=== PATIENT | female | born 2000 | race Caucasian/White ===

== ENCOUNTER 2021-04-17 10:46 | Emergency (ER) | payer OTHER, SELFPAY ==
[2021-04-17 10:47] VITALS: BP 135/97; PULSE 78; RESP 16; TEMP 36.6; O2SAT 99; BMI 21.8
--- NOTE | 2021-04-17 11:09 | CT_ITS ---
EXAM: CT ABDOMEN AND PELVIS WITHOUT INTRAVENOUS CONTRAST : 2000 CLINICAL INDICATION: Kidney Stone TECHNIQUE: Helically acquired images were obtained of the abdomen and pelvis without intravenous contrast. This CT exam was performed using one or more of the following dose reduction techniques: automated exposure control, adjustment of the mA and/or kV according to patient size, and/or use of iterative reconstruction technique. This report was created using [employer] report generation technology. COMPARISON: None. FINDINGS: LOWER THORAX: Unremarkable. Lung bases are clear. No cardiomegaly. No significant pericardial effusion. ABDOMEN: LIVER: Unremarkable. Homogeneous. GALLBLADDER AND BILE DUCTS: Unremarkable. No calcified gallstones. No gallbladder distention or wall edema. No intra- or extrahepatic biliary ductal dilation. PANCREAS: Unremarkable. No focal cystic mass. SPLEEN: Unremarkable. Normal size without focal cystic or solid mass. ADRENALS: Unremarkable. No nodules. KIDNEYS AND URETERS: Unremarkable. Normal renal size and position. No hydronephrosis. STOMACH AND BOWEL: Unremarkable. No stomach or bowel distention. No focal inflammatory change. PELVIS: APPENDIX: No evidence of acute appendicitis. BLADDER: Unremarkable. REPRODUCTIVE: Unremarkable as visualized. No mass. ABDOMEN and PELVIS: INTRAPERITONEAL SPACE: Unremarkable. No ascites or other fluid collection. No free air. BONES/JOINTS: Unremarkable. No suspicious lytic or blastic abnormality. SOFT TISSUES: Unremarkable. No discrete abdominal or pelvic wall hernia. VASCULATURE: Unremarkable. Abdominal aorta is non-dilated. LYMPH NODES: Unremarkable. No enlarged lymph nodes. CT/Abdomen/Pelvis without Cont IMPRESSION: Negative CT of the abdomen and pelvis without intravenous contrast. Individualized dose optimization techniques were used for this CT. at 1255 Reported and signed by: John Moore MD Electronically Signed: John Moore MD at 12:54 EDT Tel , Service support ,
--- NOTE | 2021-04-17 11:10 | EX.ED.DYSGE1 ---
HPI History of Present Illness Chief Complaint: Flank Pain Informant: patient Narrative Narrative: 21-year-old healthy female presents the emergency room with right flank pain. Patient states the symptoms have been intermittent and when they are present are sharp and causes her nausea. They do occasionally wake her out of her sleep. Patient notes that she has been working more at [employer] and cutting [employer] which utilizes her core but her core muscles have not been sore. She notes there is 1 small area that is tender along the lower mid axillary ribs. She denies any change in urinary symptoms. No change in bowel symptoms. No fevers. PFSH PFSH no medical history Home Medications NK 04/17/21 [History Last Taken Unknown] Allergy/AdvReac Type Severity Reaction Status Date / Time naproxen Allergy Rash Verified 04/17/21 10:53 no surgical history Social History (Updated 04/17/21 @ 11:[address] Akil Navarrete, DO) Smoking Status: Never smoker substance use type: does not use ROS ROS ED Constitutional Constitutional ED: Denies chills or weight loss Eyes Eyes: Denies change in vision or diplopia ENT ENT ED: Denies ear pain, rhinorrhea or sore throat Cardiovascular Cardiovascular: Denies chest pain, orthopnea, palpitations or racing heartbeat Respiratory/Chest Respiratory/Chest: Denies cough, dyspnea or orthopnea Gastrointestinal Gastrointestinal: Reports nausea; Denies abdominal pain, diarrhea or vomiting Genitourinary Genitourinary ED: Reports other Details: Right flank pain ; Denies dysuria, hematuria or urinary frequency Musculoskeletal Musculoskeletal: Denies arthralgias or myalgias Integumentary Denies abscess or rash Neurologic Neurologic: Denies headache(s) or weakness Psychiatric Psychiatric: Denies anxiety, depression, suicidal ideation or suicidal thoughts Endocrine Endocrinology: Denies polydipsia, polyphagia or polyuria Allergic/Immunologic Allergic/Immunologic ED: Denies mouth swelling, tongue swelling or urticaria EXAM Physical Exam Const Vital Signs: 04/17/21 10:47 04/17/21 10:53 04/17/21 13:04 Temperature 97.9 F Temperature Source Temporal Pulse Rate 78 89 Respiratory Rate 16 16 Respiratory Effort Normal Respiratory Pattern Normal Blood Pressure 135/97 H 128/79 H Blood Pressure Mean 109 95 Pulse Ox 99 99 Oxygen Delivery Method Room Air Positive well nourished and well developed General Appearance ED: well developed HEENT Reports normocephalic, head/scalp atraumatic and moist mucous membranes Eyes PERRL and EOMs intact bilaterally Neck no lymphadenopathy, supple and no JVD Chest Wall Chest Narrative: Tender to palpation over the lower ribs on the right in the midaxillary line. Specifically rib 11 and 12. Resp normal respiratory effort and clear to auscultation bilaterally Cardio regular rate, regular rhythm and no murmurs GI normal to inspection, nondistended, normoactive bowel sounds and non-tender Palpation: soft Back/Spine no CVA tenderness and normal ROM Extremity normal to inspection General Extremety ED: Negative for edema General Extremity: Negative for edema Neuro oriented x3 and CN's II-XII intact bilaterally Sensorium / Orientation: alert Motor Exam: strength 5/5 throughout Psych mental status grossly normal Mood & Affect: Negative for depressed or tearful Skin no rashes or lesions noted and no wounds MDM MDM MDM Narrative Medical decision making narrative: Basic blood work was obtained and was negative. Serum test negative. Urinalysis negative. CT the abdomen pelvis without contrast was obtained does not show any acute pathology to explain her symptoms. This point patient be discharged home. Anti-inflammatories and rest follow-up primary care if not improving return if worsening Lab Data Attestation: I reviewed the patient's lab results. Labs: Laboratory Results - last 24 hr 04/17/21 04/17/21 04/17/21 11:19 11:19 11:19 WBC 6.7 RBC 5.18 Hgb 14.1 Hct 43.6 MCV 84.2 MCH 27.2 MCHC 32.3 RDW Std Deviation 41.7 RDW Coeff of [place] 13.4 Plt Count 359 MPV 10.2 Immature Gran % (Auto) 0.100 Neut % (Auto) 62.7 Lymph % (Auto) 27.8 [place] % (Auto) 8.8 Eos % (Auto) 0.3 Baso % (Auto) 0.3 Absolute Neuts (auto) 4.2 Absolute Lymphs (auto) 1.86 Nucleated RBC % 0 Sodium 137 Potassium 4.2 Chloride 108 H Carbon Dioxide 24.0 Anion Gap 5 BUN 10 Creatinine 0.93 Estim Creat Clear Calc 91.49 Est GFR (MDRD) Af Amer 96 Est GFR (MDRD) Non-Af 79 BUN/Creatinine Ratio 10.7 Glucose 86 Calcium 8.7 Total Bilirubin 0.50 AST 19 ALT 24 Alkaline Phosphatase 40 L Total Protein 7.8 Albumin 3.9 Globulin 3.9 Albumin/Globulin Ratio 1.0 Serum , Qual NEGATIVE Urine Color Urine Clarity Urine pH Ur Specific [place] Urine Protein Urine Glucose (UA) Urine Ketones Urine Occult Blood Urine Nitrite Urine Bilirubin Urine Urobilinogen Ur Leukocyte Esterase Urine RBC Urine WBC Ur Squamous Epith Cells Urine Bacteria Urine Mucus 04/17/21 12:20 WBC RBC Hgb Hct MCV MCH MCHC RDW Std Deviation RDW Coeff of [place] Plt Count MPV Immature Gran % (Auto) Neut % (Auto) Lymph % (Auto) [place] % (Auto) Eos % (Auto) Baso % (Auto) Absolute Neuts (auto) Absolute Lymphs (auto) Nucleated RBC % Sodium Potassium Chloride Carbon Dioxide Anion Gap BUN Creatinine Estim Creat Clear Calc Est GFR (MDRD) Af Amer Est GFR (MDRD) Non-Af BUN/Creatinine Ratio Glucose Calcium Total Bilirubin AST ALT Alkaline Phosphatase Total Protein Albumin Globulin Albumin/Globulin Ratio Serum , Qual Urine Color Yellow Urine Clarity Sl. Cloudy Urine pH 6.5 Ur Specific [place] 1.010 Urine Protein 15 H Urine Glucose (UA) Normal Urine Ketones Negative Urine Occult Blood 10 H Urine Nitrite Negative Urine Bilirubin Negative Urine Urobilinogen Normal Ur Leukocyte Esterase Negative Urine RBC 0 SEEN Urine WBC 0 SEEN Ur Squamous Epith Cells 0-5 SEEN Urine Bacteria 0 SEEN Urine Mucus 0 SEEN Radiography Diagnostic Testing: Radiology Impression Abdomen/Pelvis CT 04/17/21 11:09 IMPRESSION: Negative CT of the abdomen and pelvis without intravenous contrast. Individualized dose optimization techniques were used for this CT. at 1255 Reported and signed by: John Moore MD Electronically Signed: John Moore MD at 12:54 EDT Tel , Service support , Discharge Plan Triage Chief Complaint: Flank Pain ED Provider: Akil Navarrete Dx/Rx/DC Orders Clinical Impression: Acute right flank pain Instructions: ED Flank Pain, Uncertain Cause Prescriptions: No Action NK RF: 0 Primary Care Provider: Care Physician,No Primary Referrals: Balbir Rock MD [STAFF PHYSICIAN] - As Needed Care Physician,No Primary [Primary Care Provider] - Disposition Disposition: Home, Self Care
[2021-04-17] MEDS: Ondansetron ODT 4 MG Tablet PO (11:25)
[2021-04-17 11:27] LABS: Absolute Lymphocyte Count 1.86 X10^3/uL (0.83-4.51); Absolute Neutrophil Count 4.2 X10^3/uL (2.0-7.7); Basophil# 0.02 X10^3/uL; Basophil% 0.3 % (0-1); Eosinophil# 0.02 X10^3/uL; Eosinophils% 0.3 % (0-5); Hematocrit 43.6 % (37-47); Hemoglobin 14.1 g/dL (12.0-15.0); Lymphocyte # 1.86 X10^3/ul (0.83-4.51); Lymphocyte % 27.8 % (19-41); Mean Corp Hgb Conc 32.3 g/dL (32-36); Mean Corpuscular Hgb 27.2 pg (27.0-32.0); Mean Corpuscular Volume 84.2 fL (81-99); Mean Platelet Vol. 10.2 fl (6.2-12.0); Monocyte# 0.59 X10^3/uL; Monocyte% 8.8 % (0-10); NRBC Flagged by Analyzer 0 % (0-5); Neutrophil # 4.18 X10^3/uL (2.7-7.7); Neutrophil % 62.7 % (47-70); Platelet Count 359 K/mm3 (150-450); RBC Distribution Width CV 13.4 % (11.6-14.6); RBC Distribution Width SD 41.7 fl (35.1-43.9); Red Blood Count 5.18 M/mm3 (4.2-5.4); White Blood Count 6.7 K/mm3 (4.4-11.0)
[2021-04-17 11:45] LABS: AST(SGOT) 19 U/L (15-37); Alanine Aminotransfer ALT/SGPT 24 U/L (13-56); Albumin, Serum 3.9 g/dL (3.2-5.0); Alkaline Phosphatase 40 U/L (45-117); Anion Gap 5 (5-15); BUN 10 mg/dL (7-18); BUN/Creat Ratio 10.7 RATIO (10-20); Calcium,Total 8.7 mg/dL (8.5-10.1); Chloride 108 mmol/L (98-107); Creatinine, Serum 0.93 mg/dL (0.55-1.02); EST Glomerular Filtration Rate 79 mL/min (>60); Est Glom Filt Rate - Afr Amer 96 mL/min (>60); Estimated Creatinine Clearance 91.49 ml/min; Globulin 3.9 g/dL (2.2-4.2); Glucose 86 mg/dL (74-106); Potassium 4.2 mmol/L (3.5-5.1); Protein, Total 7.8 g/dL (6.4-8.2); Sodium Level 137 mmol/L (136-145)
[2021-04-17 12:17] LABS: Internal QC Validated? YES +Cl - CLEAR BKGD; Pregnancy, Serum, hCG Quali. NEGATIVE Negative
[2021-04-17 12:35] LABS: Bacteria 0 SEEN /hpf (None Seen); Mucous, Urine 0 SEEN /hpf (<or=2+); Red Blood Cells-Urine 0 SEEN /hpf (0-5); White Blood Cells 0 SEEN /hpf (0-5)
[2021-04-17 12:39] LABS: Color, Urine Yellow (Yellow); Glucose, Dipstick Normal (Normal); Ketone-Dipstick Negative (Negative); Leukocyte Esterase-Dipstick Negative /ul (Negative); Nitrite-Dipstick Negative (Negative); Occult Blood-Urine 10 /ul (Negative); Protein-Dipstick 15 mg/dl (Negative); Urine Bilirubin Dipstick Negative (Negative); Urine Clarity Sl. Cloudy (Clear); Urine Urobilinogen Normal (Normal); Urine pH 6.5 (5.0 - 8.0)
[2021-04-17 12:47] LABS: Squamous Epithelial Cells - UA 0-5 SEEN /hpf (5-10)
[2021-04-17 13:04] VITALS: BP 128/79; PULSE 89; RESP 16; O2SAT 99
== END 2021-04-17 13:26 | disposition home or self-care (01) ==
PROVIDERS: Emergency Provider Emergency Medicine
DX: R10.9 Unspecified abdominal pain (principal)
CPT/HCPCS: 74176; 80053; 81001; 84703; 85025; 99283; A4216

== ENCOUNTER 2023-04-12 10:02 | Emergency (ER) | payer OTHER, SELFPAY ==
[2023-04-12 10:04] VITALS: BP 136/91; PULSE 91; RESP 16; TEMP 36.1; O2SAT 100; BMI 25.3
--- NOTE | 2023-04-12 11:14 | US_ITS ---
INDICATION: 8 week preg, vag bleed EXAMINATION: Ultrasound US OB Transvaginal TECHNIQUE: Transvaginal (for optimal evaluation of the adnexa) pelvic ultrasound was performed. Grayscale, spectral waveform, and color flow Doppler evaluation of the adnexa. COMPARISON: No prior examinations are available for comparison. LMP: [02/17/2023. Beta-hCG: Unknown FINDINGS: UTERUS: 9.5 x 5.04 cm. The endometrium measures about 6 mm. RIGHT OVARY: 4.3 x 2.6 x 2.4 cm. Normal. LEFT OVARY: 1.8 x 2 x 1.8 cm. Normal. FREE FLUID: Minimal amount of free fluid in the cul-de-sac. INTRAUTERINE GESTATIONAL SAC(s) (size/shape): No evidence of intrauterine . US/Transvaginal w/Preg US IMPRESSION: 1. No evidence of intrauterine . 2. Correlation with quantitative beta-hCG levels and if indicated, follow-up examination are recommended to exclude ectopic . Electronically Signed: Nazario Bowman MD at 12:36 EDT ,
--- NOTE | 2023-04-12 11:19 | EDS_ITS ---
HPI HPI - Female History of Present Illness Chief Complaint: Vag Bld, Preg Narrative Narrative: Patient is a 23-year-old female who is presenting to the ER with chief complaint of vaginal bleeding, and patient believes that she is approximately 8 weeks . Patient is a G1, P0. Patient is at bedside. Patient's had bleeding that started last evening around 1 AM, and intermittent vaginal bleeding and intermittent clots. Patient is taking vitamins. Patient does work, no heavy lifting, twisting turning or any trauma recently. Patient's had no traumatic intercourse in the last couple days. Patient has no urinary frequency, urgency or burning. No abdominal pain, nausea or vomiting. Patient did have some mild left pelvic cramping earlier this morning, that has resolved. Patient not lightheaded, dizzy, no other acute complaints. Patient is taking vitamins, patient was going to be following up with Ana Mcgowan, for OB care. She has not seen her in the office yet. Patient has no other acute complaints at this time. PFSH PFSH Home Medications NK 04/17/21 [History Last Taken Unknown] Allergy/AdvReac Type Severity Reaction Status Date / Time naproxen Allergy Rash Verified 04/12/23 10:04 Social History (Updated 04/17/21 @ 11:[address] Akil Navarrete, DO) Smoking Status: Never smoker substance use type: does not use ROS ROS ED ROS Narrative REVIEW OF SYSTEMS: Unless otherwise stated in this report the patient's positive and negative responses for review of systems for constitutional, eyes, ENT, cardiovascular, respiratory, gastrointestinal, neurological, , musculoskeletal, and integument systems and related systems to the presenting problem are either stated in the history of present illness or were not pertinent or were negative for the symptoms and/or complaints related to the presenting medical problem. EXAM Physical Exam Narrative Exam Narrative: Nurses note and vital signs reviewed and patient is not hypoxic. General: The patient appears well and in no apparent distress. Patient is resting comfortably on cart. Skin: Warm, dry, no pallor noted. There is no rash noted. Head: Normocephalic, atraumatic Eye: Normal conjunctiva Ears, Nose, Mouth, and Throat: oral mucosa is moist Cardiovascular: Regular Rate and Rhythm Respiratory: Patient is in no distress, no accessory muscle use, lungs are clear to auscultation, no wheezing, rales or rhonchi Back: non-tender, no CVA tenderness bilaterally to percussion. GI: Normal bowel sounds, no tenderness to palpation, no masses appreciated. No rebound, guarding, or rigidity noted. : Pelvic exam was completed with nursing staff at bedside for entire duration of the exam. Speculum exam showed normal external genitalia, there was NO evidence of white/clear discharge in vaginal vault. There was mild to mod evidence of blood noted in the vaginal vault. Patient's os was closed. Bimanual exam showed no cervical motion tenderness, no adnexal tenderness, no masses were appreciated. Os is closed. Musculoskeletal: The patient has no evidence of calf tenderness, no pitting edema, symmetrical pulses noted bilaterally Neurological: A&O x4, normal speech Psychiatric: Cooperative Const Vital Signs: 04/12/23 10:04 Temperature 96.9 F L Temperature Source Temporal Pulse Rate 91 Respiratory Rate 16 Blood Pressure 136/91 H Blood Pressure Mean 106 Pulse Ox 100 Oxygen Delivery Method Room Air MDM MDM MDM Narrative Medical decision making narrative: [address] Membreno, OB avionics systems engineer. Recommendation to give patient RhoGAM injection secondary to positive hCG of 241 despite no evidence of intrauterine when patient thought she was approximately weeks . Patient is a negative. Patient understands risk and benefits of receiving RhoGAM injection and agrees. Patient's ultrasound report was given to her. No evidence of intrauterine . Patient is hCG is only 241, patient believed that she was ritika roximately 8 weeks . 10 to 15 minutes of education was done on vaginal bleeding in during initial HPI, after pelvic exam, and on discharge. Patient will continue taking vitamins. Patient will follow-up in the office with Dr. Marvin Rain, [facility]. Patient will continue to increase fluids at home, use Tylenol as needed for cramping. Otherwise no questions at discharge. Patient has been very thankful for the time spent with patient Lab Data Attestation: I reviewed the patient's lab results. Labs: Laboratory Results - last 24 hr 04/12/23 04/12/23 11:25 11:35 WBC 13.0 H RBC 5.11 Hgb 14.3 Hct 42.5 MCV 83.2 MCH 28.0 MCHC 33.6 RDW Std Deviation 43.0 RDW Coeff of Maycol 14.2 Plt Count 367 MPV 9.9 Immature Gran % (Auto) 0.500 Neut % (Auto) 75.7 H Lymph % (Auto) 15.5 L [place] % (Auto) 7.4 Eos % (Auto) 0.5 Baso % (Auto) 0.4 Absolute Neuts (auto) 9.8 H Absolute Lymphs (auto) 2.01 Nucleated RBC % 0 HCG, Quant 241 H Urine Color Yellow Urine Clarity Clear Urine pH 7.0 Ur Specific [place] 1.010 Urine Protein Negative Urine Glucose (UA) Normal Urine Ketones Negative Urine Occult Blood 250 H Urine Nitrite Negative Urine Bilirubin Negative Urine Urobilinogen Normal Ur Leukocyte Esterase Negative Urine RBC 10-25 SEEN Urine WBC 0 SEEN Ur Squamous Epith Cells 0 SEEN Urine Bacteria 0 SEEN Urine Mucus 0 SEEN Blood Type A NEGATIVE Radiography Diagnostic Testing: Clinical Impression(s) from Imaging Studies Obstetrics Ultrasound 04/12/23 11:14 IMPRESSION: 1. No evidence of intrauterine . 2. Correlation with quantitative beta-hCG levels and if indicated, follow-up examination are recommended to exclude ectopic . Electronically Signed: Nazario Bowman MD at 12:36 EDT , Treatment and Re-Evaluation Narrative: A prescription for repeat blood test of hCG quantitative lab work was given to the patient, results will go to Dr. Ana Rain. Discharge Plan Triage Chief Complaint: Vag Bld, Preg ED Provider: Chance Morelos Dx/Rx/DC Orders Clinical Impression: Complete , Vaginal bleeding Instructions: ED Miscarriage Spontaneous Prescriptions: No Action NK Primary Care Provider: Glynn Ascencio Referrals: Glynn Ascencio, [Primary Care Provider] - Activity Restrictions/Additional Instructions: You have been given a prescription to repeat your hCG quantitative blood test on Friday or Friday, results will go to Dr. Ana Rain. Your hCG quant today was 241, a copy of your ultrasound report is been given to you, there is no evidence of intrauterine today. Increase fluids. Follow-up with [facility]. Use Tylenol as needed for pelvic cramping Disposition Disposition: Home, Self Care
[2023-04-12 11:36] LABS: Absolute Lymphocyte Count 2.01 X10^3/uL (0.83-4.51); Absolute Neutrophil Count 9.8 X10^3/uL (2.0-7.7); Basophil# 0.05 X10^3/uL; Basophil% 0.4 % (0-1); Eosinophil# 0.06 X10^3/uL; Eosinophils% 0.5 % (0-5); Hematocrit 42.5 % (37-47); Hemoglobin 14.3 g/dL (12.0-15.0); Lymphocyte # 2.01 X10^3/ul (0.83-4.51); Lymphocyte % 15.5 % (19-41); Mean Corp Hgb Conc 33.6 g/dL (32-36); Mean Corpuscular Volume 83.2 fL (81-99); Mean Platelet Vol. 9.9 fl (6.2-12.0); Monocyte# 0.96 X10^3/uL; Monocyte% 7.4 % (0-10); NRBC Flagged by Analyzer 0 % (0-5); Neutrophil # 9.82 X10^3/uL (2.7-7.7); Neutrophil % 75.7 % (47-70); Platelet Count 367 K/mm3 (150-450); RBC Distribution Width CV 14.2 % (11.6-14.6); Red Blood Count 5.11 M/mm3 (4.2-5.4)
[2023-04-12 11:45] LABS: Bacteria 0 SEEN /hpf (None Seen); Mucous, Urine 0 SEEN /hpf (<or=2+); Squamous Epithelial Cells - UA 0 SEEN /hpf (5-10); White Blood Cells 0 SEEN /hpf (0-5)
[2023-04-12 11:47] LABS: Color, Urine Yellow (Yellow); Glucose, Dipstick Normal (Normal); Ketone-Dipstick Negative (Negative); Leukocyte Esterase-Dipstick Negative /ul (Negative); Nitrite-Dipstick Negative (Negative); Occult Blood-Urine 250 /ul (Negative); Protein-Dipstick Negative (Negative); Urine Bilirubin Dipstick Negative (Negative); Urine Clarity Clear (Clear); Urine Urobilinogen Normal (Normal)
[2023-04-12 11:52] LABS: hCG Titer Quant., Serum 241 mIU/mL (1-3)
[2023-04-12 11:55] LABS: Red Blood Cells-Urine 10-25 SEEN /hpf (0-5)
[2023-04-12 13:30] VITALS: RESP 18
== END 2023-04-12 14:32 | disposition home or self-care (01) ==
PROVIDERS: Emergency Provider Emergency Medicine; PCP Student in an Organized Health Care Education/Training Program; Visit Provider Emergency Medicine
DX: O03.9 Complete or unspecified spontaneous abortion without complication (principal); Z3A.08 8 weeks gestation of pregnancy
CPT/HCPCS: 76817; 81001; 84702; 85025; 86900; 86901; 99283; A4216; J2790

== ENCOUNTER → 2023-04-14 | Outpatient (CLI) | payer OTHER, SELFPAY ==
[2023-04-14 12:28] LABS: hCG Titer Quant., Serum 49 mIU/mL (1-3)
== END | disposition home or self-care (01) ==
LOC: LAB 11:08
PROVIDERS: PCP Student in an Organized Health Care Education/Training Program; Referring Provider Emergency Medicine; Visit Provider Emergency Medicine
DX: Z34.90 Encounter for supervision of normal pregnancy, unspecified, unspecified trimester (principal)
CPT/HCPCS: 36415; 84702

== ENCOUNTER 2024-10-11 06:18 | Inpatient (IN) | payer OTHER, SELFPAY ==
[2024-10-11] VITALS (60 sets, daily range): BP systolic 76–172; BP diastolic 41–97; PULSE 81–118; RESP 14–16; TEMP 36.1–37.5; O2SAT 97–100; BMI 32.2
[2024-10-11 06:51] LABS: Absolute Lymphocyte Count 2.18 X10^3/uL (0.83-4.51); Absolute Neutrophil Count 8.2 X10^3/uL (2.0-7.7); Basophil# 0.06 X10^3/uL; Basophil% 0.5 % (0-1); Eosinophil# 0.12 X10^3/uL; Hematocrit 39.2 % (37-47); Hemoglobin 13.5 g/dL (12.0-15.0); Lymphocyte # 2.18 X10^3/ul (0.83-4.51); Mean Corp Hgb Conc 34.4 g/dL (32-36); Mean Corpuscular Hgb 28.9 pg (27.0-32.0); Mean Corpuscular Volume 83.9 fL (81-99); Mean Platelet Vol. 11.8 fl (6.2-12.0); Monocyte# 0.81 X10^3/uL; NRBC Flagged by Analyzer 0 % (0-5); Neutrophil # 8.15 X10^3/uL (2.7-7.7); Platelet Count 268 K/mm3 (150-450); RBC Distribution Width CV 14.1 % (11.6-14.6); Red Blood Count 4.67 M/mm3 (4.2-5.4); White Blood Count 11.5 K/mm3 (4.4-11.0)
--- NOTE | 2024-10-11 08:38 | HP.PCM.OB_ITS ---
HPI - General General Date of Admission: 10/11/24 HPI Narrative CHRIS VIERA, is a 24 F who presents at 38w3d for SROM at 0500, grossly ruptured. Contractions mild. No vaginal bleeding, good movement. Maternal Data Information RAJNI Calculator Estimated Delivery Date Method Current WG Current Estimate 10/22/24 Manual 38w 3d PFSH PFS Medical History (Updated 10/11/24 @ 17:29 by Ana Tolliver CNM) Anxiety Home Medications ?Medication ?Instructions ?Recorded ?Last Taken ?Type aspirin 81 mg capsule 81 mg PO DAILY 10/11/24 10/10/24 History famotidine 20 mg tablet (Pepcid) 10 mg PO DAILY PRN heartburn 10/11/24 10/10/24 History vit no.95-ferrous 1 tab PO DAILY 10/11/24 10/10/24 History fumarate 28 mg-folic acid 800 mcg tablet () Allergy/AdvReac Type Severity Reaction Status Date / Time naproxen Allergy Hives Verified 10/11/24 06:08 Surgical History (Updated 10/11/24 @ 06:35 by Netta Yeboah) [place] teeth removed Social History (Updated 04/17/21 @ 11:[address] Akil Navarrete, DO) Smoking Status: Never smoker substance use type: does not use History Elective abortions Hx Para 0 Spontaneous abortions Hx # Term Pregnancies Ectopic pregnancies Hx # Pregnancies Multiple births # of living children NST FHR Rate Baby A Baseline: 140 Variability:: Moderate Accelerations:: 15 x 15 Decelerations:: Variable FHR Category:: Category II Uterine Activity:: Every 4-8 minutes, mild ROS Constitutional Constitutional: Reports systems reviewed and no addt'l complaints, except as documented; Denies headache(s) Eyes Eyes: Denies acute decrease in peripheral vision, blurry vision or change in vision ENT HEENT: Reports systems reviewed and no addt'l complaints, except as documented Cardiovascular Cardiovascular: Denies chest pain or dizziness Respiratory/Chest Respiratory/Chest: Denies cough, dyspnea, dyspnea on exertion, shortness of breath at rest or shortness of breath with exertion Gastrointestinal Gastrointestinal: Denies abdominal pain, diarrhea, nausea or vomiting Genitourinary Genitourinary: Denies abdominal discomfort or movement Musculoskeletal Musculoskeletal: Denies limited range of motion Integumentary Integumentary: Reports systems reviewed and no addt'l complaints, except as documented Neurologic Neurologic: Reports systems reviewed and no addt'l complaints, except as documented Psychiatric Psychiatric: Reports systems reviewed and no addt'l complaints, except as doc umented Endocrine Endocrinology: Reports systems reviewed and no addt'l complaints, except as documented Hematologic/Lymphatic Hematologic/Lymphatic: Reports systems reviewed and no addt'l complaints, except as documented Allergic/Immunologic Allergic/Immunologic: Reports systems reviewed and no addt'l complaints, except as documented Vital Signs Vital Signs Vital Signs: 10/11/24 06:10 10/11/24 06:10 10/11/24 06:10 Temperature Temperature Source Temporal Pulse Rate 108 H Respiratory Rate Blood Pressure 127/86 H BP Systolic 127 BP Diastolic 86 Pulse Ox 10/11/24 06:10 10/11/24 06:10 10/11/24 06:10 Temperature 98.5 F Temperature Source Pulse Rate Respiratory Rate 14 Blood Pressure BP Systolic BP Diastolic Pulse Ox 97 10/11/24 07:15 10/11/24 07:15 10/11/24 07:15 Temperature Temperature Source Temporal Pulse Rate 95 Respiratory Rate Blood Pressure 129/79 H BP Systolic 129 BP Diastolic 79 Pulse Ox 10/11/24 07:15 10/11/24 07:15 Temperature 98.2 F Temperature Source Pulse Rate Respiratory Rate 16 Blood Pressure BP Systolic BP Diastolic Pulse Ox Weight Weight: 199 lb 11.821 oz Body Mass Index (BMI) 32.2 Physical Exam Const alert and oriented x3 General Appearance: cooperative Orientation / Consciousness: awake, oriented to person, oriented to place and oriented to time Exam Limitations: no limitations HEENT normocephalic Head and Scalp: normal to inspection, normocephalic and atraumatic Face and Sinus: normal facial exam Eyes General Eye: normal appearance of both eyes Neck full ROM Chest Chest: symmetrical chest wall rise Resp normal respiratory effort and normal air movement Auscultation: clear to auscultation bilaterally Cardio regular rate, regular rhythm, S1 normal heart sound, S2 normal heart sound, no murmurs, no rub, no gallops and no clicks GI normal to inspection, nondistended, normoactive bowel sounds and non-tender appearance of the vagina normal Bladder / Kidney Exam: no CVA tenderness Back/Spine normal ROM Extremity normal to inspection and full ROM Skin no rashes or lesions noted Neuro oriented x3 and moves all extremities Sensorium / Orientation: awake, alert and oriented to person Motor Exam: clonus absent Deep Tendon Reflexes: Rt Patellar (L4): 2+ and Lt Patellar (L4): 2+ Labs Labs Labs: Blood Type A NEGATIVE Antibody Screen NEGATIVE Hct 39.2 % (37-47) Hgb 13.5 g/dL (12.0-15.0) Obstetrics Ultrasound Syphilis Total Ab Non-reactive GBS negative A negative RPR negative HIV nonreactive HBsAG negative Hep c negative Rubella immune GC/CT negtive Assessment & Plan (1) SROM (spontaneous rupture of membranes): (2) Anxiety: (3) Rh negative state in antepartum period: COMMENT: Rhogam 28 wk (4) History of miscarriage: (5) Heartburn during : (6) 38 weeks gestation of : PLAN: Plan 1) Admit to labor and delivery 2) Routine labs 3) Continuous EFM due to category 2 FHT 4) Pain management upon request 5) Reviewed active management with pitocin vs expectant management. She would like expectant management at this time. Reviewed option for nipple stimulation. 6) collaborative physician and notified of patient status, above assessment, and plan.
[2024-10-11 09:16] LABS: Syphilis Antibodies Non-reactive
[2024-10-11] MEDS: Famotidine 20 MG Tablet 10 MG PO (10:12)
[2024-10-11 11:45] LABS: Lymphocyte 17 % (19-41); Monocyte 3 % (0-10); Neutrophil-Segmented 80 % (47-70); Total Cells Counted 100 (MANUAL DIFF)
[2024-10-11 11:59] LABS: Red Cell Morphology NORM C+C NORMAL (NORM C&C)
[2024-10-11 12:02] LABS: Platelet Estimate ADEQUATE (ADEQ)
[2024-10-11] MEDS: Ondansetron 4 MG/2 ML Vial IV (15:59)
[2024-10-11] MEDS: Lactated Ringers 1,000 ML 999 ML IV (16:05)
[2024-10-11] MEDS: fentaNYL-bupivacaine (epidural) 100 ML BAG EPIDURAL ×2 (16:45→21:00)
[2024-10-11] MEDS: Lactated Ringers 1,000 ML 200 ML IV ×2 (17:05→19:45)
[2024-10-11] MEDS: LACTATED RINGERS 500 ML 999 ML IV (19:20)
[2024-10-11] MEDS: Oxytocin 15 Units/NS 250ml 15 UNITS/250 ML IV.SOLN 2 UNITS IV (20:25)
[2024-10-11] MEDS: Mag Hydrox/Al Hydrox/Simeth 30 ML UDC PO (23:20)
[2024-10-12] VITALS (15 sets, daily range): BP systolic 103–159; BP diastolic 59–88; PULSE 81–110; RESP 16–17; TEMP 35.9–37.3; O2SAT 97
--- NOTE | 2024-10-12 00:04 | OB.VAGDELI_ITS ---
Assessment & Plan (1) Vaginal delivery: (2) First degree perineal laceration: (3) Lactating mother: Maternal Data Information RAJNI Calculator Estimated Delivery Date Method Current WG Current Estimate 10/22/24 Manual 38w 4d Vaginal Delivery Maternal Presentation Maternal Presentation: Spontaneous Rupture of Membranes Vaginal Delivery Information Procedure Performed: Spontaneous Vaginal Delivery Date of Procedure: 10/12/24 Pre-Procedure Diagnosis: PROM at term Post-Procedure Diagnosis: Type of anesthesia: Epidural Estimated Blood Loss: 400ml Time of Delivery: 23:45 Findings Description of procedure: Progressed to complete with urge to push. Epidural for pain management. of viable female over first degree perineal laceration . APGARS 8,9 respectively. Infant head delivered with body immediately forthcoming. Placed on maternal abdomen, strong cry. Mouth and nares suctioned for secretions. Pitocin started for active 3rd stage management. Cord doubly clamped and cut after pulsations ceased, delayed cord clamping. Placenta delivered intact via singh , 3 vessel cord intact. Perineum inspected and revealed first degree perineal laceration. Repaired with 3.0 vicryl rapide and epidural. Fundus firm and hemostasis achieved. EBL 400ml. Mom and baby stable, planning to breastfeed. Family bonding well. notified of delivery. Presentation: Vertex Amniotic Membrane Rupture Type: Spontaneous Amniotic Fluid Description: Clear Placental Delivery Description: Spontaneous Placenta Disposition: [facility] Specimen collected: No Cord Vessel Description: 3 Vessels Cord Entanglement: None Infant A Gender: Female (1 minute): 8 (5 minute): 9 Delayed Cord Clamping: Yes Prn Physical Therapist dog beautician: No Post Vaginal Deli Medications given after delivery: IV Pitocin Episiotomy Description: None Laceration: Perineal Extension/lac and 1st degree Complication Complications: No
[2024-10-12] MEDS: Oxytocin 15 Units/NS 250ml 15 UNITS/250 ML IV.SOLN 83 UNITS IV (00:34)
[2024-10-12] MEDS: Ibuprofen 600 MG Tablet PO ×3 (02:10→20:26)
[2024-10-12 02:25] LABS: Absolute Lymphocyte Count 1.81 X10^3/uL (0.83-4.51); Absolute Neutrophil Count 18.9 X10^3/uL (2.0-7.7); Basophil# 0.07 X10^3/uL; Basophil% 0.3 % (0-1); Hematocrit 34.9 % (37-47); Hemoglobin 12.1 g/dL (12.0-15.0); Lymphocyte # 1.81 X10^3/ul (0.83-4.51); Lymphocyte % 8.2 % (19-41); Mean Corp Hgb Conc 34.7 g/dL (32-36); Mean Corpuscular Hgb 28.6 pg (27.0-32.0); Mean Corpuscular Volume 82.5 fL (81-99); Mean Platelet Vol. 12.1 fl (6.2-12.0); Monocyte# 1.16 X10^3/uL; Monocyte% 5.2 % (0-10); NRBC Flagged by Analyzer 0 % (0-5); Neutrophil # 18.91 X10^3/uL (2.7-7.7); Neutrophil % 85.6 % (47-70); Platelet Count 229 K/mm3 (150-450); RBC Distribution Width SD 41.2 fl (35.1-43.9); Red Blood Count 4.23 M/mm3 (4.2-5.4); White Blood Count 22.1 K/mm3 (4.4-11.0)
[2024-10-12] MEDS: Rho(D) Immune Globulin 300 MCG (1500 Unit) Syringe IV (03:24)
[2024-10-12] MEDS: 0.9% Saline Lock 10 ML Syringe IV (03:25)
[2024-10-12] MEDS: Acetaminophen 500 MG Tablet 1000 MG PO (08:09)
--- NOTE | 2024-10-12 08:40 | PN.OBGYN_ITS ---
Subjective Subjective Doing well. Ambulating and voiding without difficulty. Mild lochia. Breast feeding. Objective Data Objective Data Vital Signs: Vital Signs Temp Pulse Resp BP Pulse Ox O2 Del Method 97.6 F L 81 16 123/77 H 97 Room Air 10/12/24 08:03 10/12/24 08:03 10/12/24 08:03 10/12/24 08:03 10/12/24 04:25 10/12/24 08:03 Oxygen Delivery Method Room Air Weight: 90.6 kg Body Mass Index (BMI) 32.2 Intake & Output: Intake and Output for Last 24 Hours 10/10/24 10/11/24 10/12/24 23:59 23:59 23:59 Intake Total 3310.23 / 3310.23 489.77 / 489.77 Output Total 200 / 200 2500 / 2500 Balance 3110.23 / 3110.23 - Lab / Micro Data 10/12/24 02:10 Labs: Laboratory Results - last 24 hr 10/11/24 06:35: Total Counted 100, Neutrophils % (Manual) 80 H, Lymphocytes % (Manual) 17 L, Monocytes % (Manual) 3, Platelet Estimate ADEQUATE, RBC Morphology NORM C+C, Syphilis Total Ab Non-reactive 10/12/24 02:10: WBC 22.1 H, RBC 4.23, Hgb 12.1, Hct 34.9 L, MCV 82.5, MCH 28.6, MCHC 34.7, RDW Std Deviation 41.2, RDW Coeff of Maycol 14.0, Plt Count 229, MPV 12.1 H, Immature Gran % (Auto) 0.700, Neut % (Auto) 85.6 H, Lymph % (Auto) 8.2 L , [place] % (Auto) 5.2, Eos % (Auto) 0.0, Baso % (Auto) 0.3, Absolute Neuts (auto) 18.9 H, Absolute Lymphs (auto) 1.81, Nucleated RBC % 0, Screen NEGATIVE, Baby's Blood Type A POSITIVE, Baby's JAMEEL NEGATIVE Physical Exam Const alert and no apparent distress General Appearance: cooperative HEENT normocephalic Resp normal respiratory effort Cardio regular rate GI soft to palpation GI Narrative: gravid, nontender, appropriate for gestational age Narrative: Fundus firm, below umbilicus. Extremity no calf tenderness General Extremity: edema Skin no wounds Rashes: No rashes noted Psych activity/motor behavior normal Assessment & Plan (1) Lactating mother: (2) Vaginal delivery: PLAN: Plan Routine care expect d/c tomorrow
[2024-10-13 02:00] VITALS: BP 118/75; PULSE 90; RESP 16; TEMP 36.3; O2SAT 98
[2024-10-13] MEDS: Ibuprofen 600 MG Tablet PO (03:00)
--- NOTE | 2024-10-13 07:20 | PCM.PN.OB ---
Subjective Subjective Doing well. Ambulating and voiding without difficulty. Mild lochia. Breast feeding. Objective Data Objective Data Vital Signs: Vital Signs Temp Pulse Resp BP Pulse Ox O2 Del Method 97.4 F L 90 16 118/75 98 Room Air 10/13/24 02:00 10/13/24 02:00 10/13/24 02:00 10/13/24 02:00 10/13/24 02:00 10/13/24 02:00 Oxygen Delivery Method Room Air Weight: 90.6 kg Body Mass Index (BMI) 32.2 Intake & Output: Intake and Output for Last 24 Hours 10/11/24 10/12/24 10/13/24 23:59 23:59 23:59 Intake Total 3310.23 / 3310.23 489.77 / 489.77 Output Total 200 / 200 2500 / 2500 Balance 3110.23 / 3110.23 - Lab / Micro Data 10/12/24 02:10 ROS Constitutional Constitutional: Denies fatigue, fever(s) or malaise Eyes Eyes: Denies change in vision ENT HEENT: Denies dizziness or headache(s) Cardiovascular Cardiovascular: Denies chest pain, dyspnea or lightheadedness Respiratory/Chest Respiratory/Chest: Denies cough or dyspnea Gastrointestinal Gastrointestinal: Denies change in bowel habits Genitourinary Genitourinary: Denies burning urination or genital lesions Integumentary Integumentary: Denies rash Neurologic Neurologic: Denies confusion, dizziness, headache(s), numbness or weakness Physical Exam Const alert and no apparent distress Narrative: Fundus firm, below umbilicus. Assessment & Plan (1) Lactating mother: (2) Vaginal delivery: PLAN: Plan discharge home No Rx needed
--- NOTE | 2024-10-13 07:21 | PCM.DC.SUM ---
Providers Date of Admission: 10/11/24 Date of Discharge: 10/13/24 Primary Care Physician: Dr. Glynn Ascencio DO Reason For Visit: VAG Diagnosis Discharge Diagnosis (1) Lactating mother: Status: Acute Code(s): Z39.1 - Encounter for care and examination of lactating mother (2) Vaginal delivery: Status: Acute Code(s): O80 - Encounter for full-term uncomplicated delivery Plan discharge home No Rx needed Medications at Discharge Home Medications famotidine 20 mg tablet (Pepcid) 10 mg PO DAILY PRN heartburn 10/11/24 vit no.95-ferrous fumarate 28 mg-folic acid 800 mcg tablet () 1 tab PO DAILY 10/11/24 Hospital Course Operations None Procedures None Summary of Care Provided Minutes Spent on Discharge: 20 Hospital Course: Spontaneous labor with . Uncomplicated. Breast feeding Physical Exam Const alert and no apparent distress Narrative: Fundus firm, below umbilicus. Weight / BMI Weight Weight: 90.6 kg Body Mass Index (BMI) 32.2 ABG / Lab / Microbiology Data 10/12/24 02:10 D/C Instructions May resume sexual activity in: 6 weeks DC O2, CPAP, BIPAP Needs Home O2 Discharge instructions: No Please Follow Up With: Sandra Melvin MD When: Follow up with our office in 1-2 and 6 weeks or as needed. [phone] Meaningful Use Info Meaningful Use Meaningful Use Diagnoses (Choose all that apply): None applicable Ischemic Stroke Statin Dosing Therapy Reference: STATIN DOSE THERAPY REFERENCE: * Patients > 75 years receive moderate or high dose statin therapy. * Patients 75 years or YOUNGER should receive HIGH intensity statin dose unless contraindicated. You will be required to document reason for non-treatment if statin daily dose does not meet guidelines. HIGH DOSE STATIN THERAPY DAILY Atorvastatin > than or = to 40 mg Rosuvastatin > than or = to 20 mg Amlodipine + Atorvastatin > than or = to 2.5/40 mg Ezetimibe + Simvastatin 10/80 mg Simvastatin 80mg Discharge Plan Admission Admit Date/Time: 10/11/24 06:18 Primary Reason for Your Visit: labor Attending Provider: Ana Tolliver Primary Care Provider: Glynn Ascencio Discharge Orders/Prescriptions Prescriptions: Continued PNV cmb#95-ferrous fumarate-FA [] 28 mg iron- 800 mcg tablet 1 tab PO DAILY famotidine [Pepcid] 20 mg tablet 10 mg PO DAILY PRN (Reason: heartburn) Discontinued aspirin 81 mg capsule 81 mg PO DAILY Referrals / Follow Up: Glynn Ascencio DO [Primary Care Provider] - Disposition Disposition (needs filled in before D/C Order can be placed): Home, Self Care
[2024-10-13 09:35] VITALS: BP 122/81; PULSE 99; RESP 16; TEMP 36.4; O2SAT 99
[2024-10-13] MEDS: Acetaminophen 500 MG Tablet 1000 MG PO (09:54)
--- NOTE | 2024-10-13 12:16 | CASEMGMT ---
Social Work Assessment Labor and Delivery Unit Patient Address: [address] [place] [address] [address] [address] Phone number: [phone] Date of Referral: 10/12/24 Time of Referral:? 232 Referred By: Ana Tolliver Date of Intervention: ?10/13/24? Time of Intervention:? 1100 Reason for Referral:? hx anxiety Sw completed chart review and acknowledges social work consult due to maternal mental health history. Sw presented to bedside and introduced self to mother of baby (MOB- Lavelle) and father of baby (FOB- Fernando). Sw explained reason for sw involvement and completed psychosocial assessment. History obtained from: medical records, MOB and FOB. Household composition: Currently residing in the family home is MOB, FOB and baby when ready for discharge. Parents deny any problems or concerns with housing. Patient's parent/guardian status:? ?Parents report that they have known each other since high school and started dating each other 10 years ago, they are . No concerns reported of domestic violence or intimate partner violence reproted. Medical History: ?NAMITA is 24 year old female who is 2, para 0- now 1 following labor and delivery of . NAMITA received routine care during with [facility] during . NAMITA presented to hospital with her water broken and delivered baby on 10/11/24 via vaginal delivery at 38 weeks gestation. Baby girl, named Florencia Hannon, was born weighing 7lb 13oz wit apgars of 8 and 9 at one and five minutes of life, respectfully. NAMITA states that she is breast feeding and it is going okay, and baby will be followed by Dr. De Los Santos. Educational Status:? MOB obtained her associates degree and LITZY has his Master's. NO problems with reading, learning or comprehension. 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 Infant Supplies: Parents have obtained all necessary baby supplies, including: safe sleep space, clothes, diapers and wipes. Childcare/Caregiver(s):? Parents state that they have family members who are able to provide childcare to baby when both parents are at work. Transportation:??No barriers Programs/Agencies Involved: ???Parents are not connected to any community agencies that assist them financially as they are over income. Children Services/Legal Issues:??NO history of children services involvement, no issues or concerns warranting referral to be made at this time. ? Behavioral Health Issues: ??Mental Health History:?LITZY denies mental health history. NAMITA states that she has a history of anxiety, is not prescribed medication and use healthy and safe coping mechanisms when she feels like she is struggling with her mental health. FOB states that NAMITA seemed to have less problems with her anxiety during . ?? Substance Use History:?Parents deny substance use prior to and during . ? Family History:??LITZY reports that his dad has a problems with alcoholism. Sw educated parents on importance of being aware of their genetic disposition when it comes to alcohol and substance use, and encouraged parents to use healthy coping mechanisms when stressed, overwhelmed or anxious opposed to seeking comfort from drugs or alcohol. Parents express understanding. ??? Drug Screens: No drug screens observed in chart review. Family/Social Stressors:? Parents deny any problems, issues, or stressors at this time. Support Systems: MOB states that both grandma's are their biggest supports. Depression/Shaken Baby/Safe Sleeping:Sw educated parents on signs and symptoms of baby blues and mood and anxiety disorders to be mindful of during this period. MOB states that she is aware of what to be on the lookout for. MOB states that she feels comfortable talking to FOB if she feels like she is getting anxious. FOB states that if MOB does not bring it up with him first, he is able to recognize when she is struggling. Sw educated parents on shaken baby prevention and ABCs of safe sleep. Parents express understanding. ASSESSMENT:? MOB and baby admitted following labor and delivery of . Parents were talkative and interactive with sw during completion of assessment. FOB observed sitting on couch and holding baby appropriately and lovingly. MOB states that she feels a connection and carlson with baby already. Parents were engaged regarding conversation of mental health and what red flags to be on the lookout for. Parents have all necessary baby supplies and natural supports in place. PLAN:?? No other services requested or indicated. MOB and baby to be discharged when medically ready. Parents were provided literature regarding: signs and symptoms of baby blues and mood and anxiety disorders, Help Me Grow, shaken baby prevention, ABCs of safe sleep and a list of [facility] resources that are available for them should any needs present themselves. Mary Ann Gonsalez, ELECTRICAL ASSISTANT, PRE K TEACHER
== END 2024-10-13 12:30 | disposition home or self-care (01) | DRG 807 ==
LOC: WPOUT 06:22 → WP 06:22
PROVIDERS: Obstetrics & Gynecology; Admitting Provider Advanced Practice Midwife; PCP Student in an Organized Health Care Education/Training Program; Referring Provider Advanced Practice Midwife; Visit Provider Advanced Practice Midwife
DX: O76 Abnormality in fetal heart rate and rhythm complicating labor and delivery (principal); Z37.0 Single live birth; O26.893 Other specified pregnancy related conditions, third trimester; Z67.11 Type A blood, Rh negative; O42.02 Full-term premature rupture of membranes, onset of labor within 24 hours of rupture; O70.0 First degree perineal laceration during delivery; Z3A.38 38 weeks gestation of pregnancy
CPT/HCPCS: 59025; 59050; 85025; 85461; 86780; 86850; 86900; 86901; 90384; 99221; A4216; G0378; J2405; J2790; J2791